=== PATIENT | female | born 1985 | race Caucasian/White ===

== ENCOUNTER 2018-07-01 05:19 | Inpatient (IN) | payer BC ==
--- NOTE | 2018-06-29 11:04 | PCM.PREANE ---
Preanesthetic Assessment - Anesthesia/Transfusion/Family Hx Anesthesia History: Prior Anesthesia Without Reaction (, wisdom teeth, ankle surgery without anesthesia issues. spinal and mac and GA.) Family History of Anesthesia Reaction: No Transfusion History: No Prior Transfusion(s) - Review of Systems General: No Symptoms Pulmonary: No Symptoms Cardiovascular: No Symptoms Gastrointestinal: Other (GERD with ) Neurological: No Symptoms (history of depression in the past) Other: Reports: None - Physical Assessment NPO Status Date: 07/01/18 NPO Status Time: 00:00 Pulse: 89 O2 Sat by Pulse Oximetry: 95 Respiratory Rate: 22 Blood Pressure: 112/64 Temperature: 98.1 C Height: 1.83 m Weight: 88.904 kg ASA Class: 2 Mental Status: Alert & Oriented x3 Airway Class: Mallampati = 1 Dentition: Reports: Normal Dentition Thyro-Mental Finger Breadths: 2 Mouth Opening Finger Breadths: 3 ROM/Head Extension: Full Lungs: Clear to Auscultation, Normal Respiratory Effort Cardiovascular: Regular Rate, Regular Rhythm - Lab Values: 04/23/18 wbc=10.4, HH=11.9/35.2, ixlq=876 07/01/18 WBC 13, HH=11.5/32.8, vqxa=146 - Allergies Allergies/Adverse Reactions: Allergies Allergy/AdvReac Type Severity Reaction Status Date / Time No Known Allergies Allergy Verified 06/26/18 09:13 - Blood Blood Available: Yes Product(s) Available: PRBC - Anesthesia Plan Pre-Op Medication Ordered: Antacids (bicitra to be given pre op) - Acknowledgements Anesthesia Type Planned: Spinal (Plan: SAB with GA backup) Pt an Appropriate Candidate for the Planned Anesthesia: Yes Alternatives and Risks of Anesthesia Discussed w Pt/Guardian: Yes Pt/Guardian Understands and Agrees with Anesthesia Plan: Yes PreAnesthesia Questionnaire HEENT History: Reports: Other (See Below) Other HEENT History: wears glasses/contacts Gastrointestinal History: Reports: Other (See Below) Other Gastrointestinal History: occasional heartburn during Genitourinary History: Reports: None [employer] History: Reports: Musculoskeletal History: Reports: Fracture Other Musculoskeletal History: hx of fx ankle Psychiatric History: Reports: Depression Other Psychiatric History: depression in the past - Past Surgical History Head Surgeries/Procedures: Reports: None HEENT Surgical History: Reports: Oral Surgery Other HEENT Surgeries/Procedures: wisdom teeth extraction Female Surgical History: Reports: Section - SUBSTANCE USE Smoking Status *Q: Never Smoker Recreational Drug Use History: No - HOME MEDS Home Medications: Home Meds Doxylamine Succinate [Unisom Sleep Aid] 1 tab PO BEDTIME PRN 06/26/18 [History] PNV95/Ferrous Fumarate/FA [ Vitamin Tablet] 1 tab PO DAILY 06/26/18 [ History]
[2018-07-01] MEDS ORDERED: Citric Acid/Sodium Citrate Solution 30 ML Cup PO ONE (05:32)
[2018-07-01] MEDS ORDERED: Sodium Chloride 0.9% 10 ML Syringe FLUSH PRN (05:32)
[2018-07-01] MEDS ORDERED: ceFAZolin 2 GM in Premix Bag 1 BAG IV ONE (05:32)
[2018-07-01] MEDS ORDERED: Sodium Chloride 0.9% 2.5 ML Syringe FLUSH PRN (05:32)
[2018-07-01] MEDS ORDERED: Lactated Ringers 1,000 ML IV SCH (05:45)
[2018-07-01] MEDS ORDERED: Oxytocin/0.9 % Sodium Chloride 30 UNIT/500 ML BAG IV SCH (05:45)
[2018-07-01] MEDS ORDERED: Oxytocin 10 Units/1 ML SDV ONE ×3 (06:30)
[2018-07-01] MEDS ORDERED: Ondansetron 4 MG/2 ML SDV ONE (06:32)
[2018-07-01] MEDS ORDERED: Morphine PF 10 MG/10 ML SDV ONE (06:33)
[2018-07-01] MEDS ORDERED: Methylergonovine 0.2 MG/1 ML Amp ONE (06:36)
[2018-07-01] MEDS ORDERED: ceFAZolin 1 GM Vial ONE ×2 (07:24)
[2018-07-01] MEDS ORDERED: Lanolin 100% Cream 7 GM Tube TOP PRN (09:22)
[2018-07-01] MEDS ORDERED: diphenhydrAMINE 50 MG/ML SDV IVPUSH PRN (09:22)
[2018-07-01] MEDS ORDERED: Ondansetron 4 MG/2 ML SDV IVPUSH PRN (09:22)
[2018-07-01] MEDS ORDERED: Bisacodyl 10 MG Supp RECTAL PRN (09:22)
[2018-07-01] MEDS ORDERED: Morphine 4 MG/ML Syringe IVPUSH PRN (09:23)
[2018-07-01] MEDS ORDERED: Nalbuphine 10 MG/1 ML Vial IVPUSH PRN (09:24)
[2018-07-01] MEDS ORDERED: Meperidine PF 25 MG/ML Syringe IVPUSH SCH (09:30)
[2018-07-01] MEDS: Ketorolac 30 MG/ML SDV IVPUSH SCH ×3 (09:42→21:25)
--- NOTE | 2018-07-01 09:42 | PCM.OPNOTE ---
- General Post-Op/Procedure Note Date of Surgery/Procedure: 07/01/18 Operative Procedure(s): Repeat section Findings: Male , Wt 3640 grams, Apgars 8 and 9. Grossly normal placenta with 3 vessel cord. Normal appearing uterus, ovaries and tubes. Pre Op Diagnosis: 39 weeks getation. Previous , declined Post-Op Diagnosis: Same Anesthesia Technique: Spinal Primary Surgeon: Kati Lozano Fluid Replacement, Intraop: 1,200 Output, Urine Amount: 100 EBL in mLs: 600 Complications: None Condition: Good
--- NOTE | 2018-07-01 09:45 | PCM.POSTAN ---
POST ANESTHESIA ASSESSMENT - MENTAL STATUS Mental Status: Alert, Oriented - VITAL SIGNS Pulse Rate: 77 SaO2: 97 Resp Rate: 21 Blood Pressure: 104/55 Temperature: 36.7 C - RESPIRATORY Respiratory Status: Respiratory Rate WNL, Airway Patent, O2 Saturation Stable - CARDIOVASCULAR CV Status: Pulse Rate WNL, Blood Pressure Stable - GASTROINTESTINAL GI Status: No Symptoms - PAIN Pain Score: 0 (spinal [id number]) - POST OP HYDRATION Hydration Status: Adequate & Stable - OBSERVATIONS Free Text/Narrative:: doing very well. Awake, alert, vitals stable. Spinal receeding.
--- NOTE | 2018-07-01 10:56 | PCM48HPAN ---
Post Anesthesia Note - EVALUATION WITHIN 48HRS OF ANESTHETIC Vital Signs in Normal Range: Yes Patient Participated in Evaluation: Yes Respiratory Function Stable: Yes Airway Patent: Yes Cardiovascular Function Stable: Yes Hydration Status Stable: Yes Pain Control Satisfactory: Yes Nausea and Vomiting Control Satisfactory: Yes Mental Status Recovered: Yes Pulse Rate: 77 SaO2: 98 Resp Rate: 16 Temperature: 36.7 C Blood Pressure: 104/55 - COMMENTS/OBSERVATIONS Free Text/Narrative:: awake, alert, vitals stable. at present. Moving legs. Butt still numb. Excellent post op anesthesia recovery. No complaints.
[2018-07-01] MEDS: Lactated Ringers 1,000 ML IV SCH ×2 (11:02→17:51)
--- NOTE | 2018-07-01 12:00 | OR ---
SURGEON: Kati Lozano MD DATE OF PROCEDURE: 07/01/2018 PREOPERATIVE DIAGNOSES: 1. Term at 39 weeks gestation. 2. Repeat elective section. 3. Prior section, declined POSTOPERATIVE DIAGNOSES: 1. Term at 39 weeks gestation. 2. Repeat elective section. 3. Prior section, declined 4. Delivered. PROCEDURE: Repeat low-transverse section via Pfannenstiel. ANESTHESIA: Spinal. ESTIMATED BLOOD LOSS: 600 mL. IV FLUIDS: 1200 mL of crystalloid. URINE OUTPUT: 100 mL clear at the end of the procedure. COMPLICATIONS: None. CONDITION: Stable to recovery room. FINDINGS: Male , Clear amniotic fluid, no nuchal cord, weight 3640 g. scores of 8 and 9 at 1 and 5 minutes respectively. Grossly normal-looking uterus, tubes, and ovaries. Grossly normal placenta with 3-vessel cord. No intraabdominal adhesions seen INDICATION: Ольга is a 33-year-old G6, P1-0-4-1 who was admitted for repeat elective section for history of a prior section. She declined trial of labor after section. DESCRIPTION OF PROCEDURE: The patient was taken to the operating room where spinal anesthesia was performed and found to be adequate. She received 2 g of Ancef. SCDs were in place. She was prepped and draped in the usual sterile fashion in dorsal supine position with a leftward tilt. An appropriate time-out was held. A Pfannenstiel skin incision was made after the old hypertrophied scar had been excised and this was then carried through to the underlying layer of fascia with the Bovie. The fascia was then incised in the midline and the incision was extended laterally with the Owen scissors. The superior aspect of this incision was grasped with Brenda clamps, elevated, and the underlying rectus muscles were dissected off with the Owen and the Bovie. Attention was turned to the inferior aspect of the incision, which in similar fashion was grasped, tented up with Brenda clamps, and the rectus muscles were dissected off with the Bovie. The rectus muscle was then in the midline until the parietal peritoneum was reached. A careful digital sweep underneath the parietal peritoneum revealed no adhesions. This incision was then extended upwards and downwards, both by blunt and sharp dissection. It was further extended laterally by stretching. An Larry O retractor was then inserted into the abdominal cavity. The vesicouterine peritoneum was identified, grasped with pickups, and entered sharply with the Metzenbaum scissors and it was extended laterally with creation of bladder flap digitally. The lower uterine segment was then incised in a transverse fashion with the scalpel and extended upward and downward bluntly. The 's head was delivered atraumatically followed by the rest of the baby. The baby was vigorous at and cried spontaneously. The cord was double clamped and cut and the was handed over to the waiting nursery staff. Cord blood and gas samples were obtained. The placenta was then delivered spontaneously via massage. The uterus was cleaned of all clots and debris. The hysterotomy was then repaired in 2 layers using 0 Vicryl suture. The first layer was repaired in a running locked fashion and a second imbricating layer was performed to obtain excellent hemostasis. The gutters were cleaned of all clots and debris, and the tubes and ovaries were then inspected. Hemostasis was evident along the hysterotomy site. Larry O retractor was removed. The peritoneal edges were identified and this layer was closed with 2-0 Vicryl in a running fashion. The subfascial layer was found to be hemostatic. The fascia was then approximated with 0 Vicryl in a running fashion. The subcuticular layer was made hemostatic with the Bovie. The skin was then closed using subcuticular stitches with a 4-0 Monocryl suture. The patient tolerated the procedure well. Sponge, instrument, and needle counts were reported as correct at the end of the procedure. The patient was taken to the recovery room in a stable condition and the baby to the nursery in a stable condition. ELKE / BRANDY /[id number] MARCELLO
[2018-07-01] MEDS ORDERED: Promethazine 25 MG/ML SDV IM SCH (16:30)
[2018-07-01] MEDS: Docusate Sodium 100 MG Cap PO SCH (21:25)
[2018-07-02] MEDS: Ketorolac 30 MG/ML SDV IVPUSH SCH ×2 (03:31→09:22)
--- NOTE | 2018-07-02 08:07 | PCM.PNPP ---
- General Info Date of Service: 07/02/18 Functional Status: Reports: Pain Controlled, Tolerating Diet, Ambulating, Urinating - Review of Systems General: Denies: Fever, Fatigue, Chills HEENT: Denies: Headaches Pulmonary: Denies: Shortness of Breath, Pleuritic Chest Pain, Cough Cardiovascular: Denies: Chest Pain, Palpitations, Dyspnea on Exertion Gastrointestinal: Denies: Abdominal Pain Genitourinary: Denies: Dysuria, Flank Pain - General Info Date of Service: 07/02/18 - Patient Data Vital Signs - Most Recent: Last Vital Signs Temp 36.4 C 07/02/18 05:00 Pulse 83 07/02/18 06:00 Resp 15 07/02/18 06:00 BP 96/49 L 07/02/18 05:00 Pulse Ox 96 07/02/18 06:00 Weight - Most Recent: 196 lb I&O - Last 24 Hours: Intake & Output 07/01/18 07/02/18 07/02/18 22:59 06:59 14:59 Intake Total 1750 Output Total 1500 2300 Balance 250 -2300 Lab Results - Last 24 Hours: Laboratory Results - last 24 hr 07/01/18 07/02/18 Range/Units 08:39 06:12 Hgb 10.6 L (12.0-16.0) g/dL Hct 32.3 L (36.0-46.0) % Cord ABG pH 7.458 H (7.18-7.38) Cord ABG Base Excess -3 (-10--2) Cord VBG pH 7.327 (7.25-7.45) Cord VBG Base Excess -2 (-10--2) Med Orders - Current: Current Medications Bisacodyl (Dulcolax) 10 mg RECTAL ONETIME PRN PRN Reason: Constipation Diphenhydramine HCl (Benadryl) 25 mg IVPUSH Q6H PRN PRN Reason: Itching or Nausea Docusate Sodium (Colace) 100 mg PO BID [facility] Last Admin: 07/01/18 21:25 Dose: 100 mg Emollient Ointment (Lansinoh Hpa) 0 gm TOP ASDIRECTED PRN PRN Reason: Sore Nipples Lactated Ringer's (Ringers, Lactated) 1,000 mls @ 125 mls/hr IV ASDIRECTED VITOR Last Admin: 07/01/18 17:51 Dose: 125 mls/hr Ibuprofen (Motrin) 800 mg PO Q8H PRN PRN Reason: mild pain or fever Ketorolac Tromethamine (Toradol) 30 mg IVPUSH Q6H [facility] Stop: 07/02/18 09:31 Last Admin: 07/02/18 03:31 Dose: 30 mg Morphine Sulfate (Morphine) 4 mg IVPUSH .ONCE PRN PRN Reason: Pain (severe 7-10) Stop: 07/02/18 11:23 Nalbuphine HCl (Nubain) 5 mg IVPUSH Q3H PRN PRN Reason: Pruritis Stop: 07/02/18 09:24 Ondansetron HCl (Zofran) 4 mg IVPUSH Q4H PRN PRN Reason: Nausea/Vomiting Last Admin: 07/01/18 12:50 Dose: 4 mg Oxycodone/Acetaminophen (Percocet 325-5 Mg) 1 tab PO Q4H PRN PRN Reason: Pain (moderate 4-6) Oxycodone/Acetaminophen (Percocet 325-5 Mg) 2 tab PO Q4H PRN PRN Reason: Pain (moderate 4-6) Promethazine HCl (Phenergan) 12.5 mg IM ONETIME [facility] Last Admin: 07/01/18 16:44 Dose: 12.5 mg Discontinued Medications Cefazolin Sodium (Ancef) Confirm Administered Dose 1 gm .ROUTE .STK-MED ONE Stop: 07/01/18 07:25 Cefazolin Sodium (Ancef) Confirm Administered Dose 1 gm .ROUTE .STK-MED ONE Stop: 07/01/18 07:25 Citric Acid/Sodium Citrate (Bicitra Solution) 30 ml PO ONETIME ONE Stop: 07/01/18 05:33 Cefazolin Sodium/Dextrose 2 gm (/ Premix) 50 mls @ 100 mls/hr IV ONETIME ONE Stop: 07/01/18 06:01 Lactated Ringer's (Ringers, Lactated) 1,000 mls @ 500 mls/hr IV BOLUS [facility] Last Admin: 07/01/18 06:00 Dose: 500 mls/hr Oxytocin/Sodium Chloride (Oxytocin 30 Unit/500 Ml-Ns) 30 unit in 500 mls @ 250 mls/hr IV TITRATE [facility] Meperidine HCl (Demerol) 12.5 mg IVPUSH .ONCE VITOR Stop: 07/01/18 11:00 Methylergonovine Maleate (Methergine) Confirm Administered Dose 0.2 mg .ROUTE .STK-MED ONE Stop: 07/01/18 06:37 Morphine Sulfate (Duramorph Pf) Confirm Administered Dose 10 mg .ROUTE .STK-MED ONE Stop: 07/01/18 06:34 Ondansetron HCl (Zofran) Confirm Administered Dose 4 mg .ROUTE .STK-MED ONE Stop: 07/01/18 06:33 Oxytocin (Pitocin) Confirm Administered Dose 10 unit .ROUTE .STK-MED ONE Stop: 07/01/18 06:31 Oxytocin (Pitocin) Confirm Administered Dose 10 unit .ROUTE .STK-MED ONE Stop: 07/01/18 06:31 Oxytocin (Pitocin) Confirm Administered Dose 10 unit .ROUTE .STK-MED ONE Stop: 07/01/18 06:31 Sodium Chloride (Saline Flush) 10 ml FLUSH ASDIRECTED PRN PRN Reason: Keep Vein Open Sodium Chloride (Saline Flush) 2.5 ml FLUSH ASDIRECTED PRN PRN Reason: Keep Vein Open - Interaction Infant Disposition, : [place] in Room with Family Feeding: Attempted ; Nursed Fair/Poor, Continues to Breastfeed Support Person: - Recovery Exam Fundal Tone: Firm Fundal Level: 1 Fingerbreadths Below Umbilicus Fundal Placement: Midline Lochia Amount: Scant Lochia Color: Rubra/Red Perineum Description: Intact, Minimal Bruising/Swelling Episiotomy/Laceration: None Bladder Status: Voiding Urinary Elimination: Voided - Exam General: Alert, Oriented HEENT: Pupils Equal Neck: Supple Lungs: Clear to Auscultation, Normal Respiratory Effort Cardiovascular: Regular Rate, Regular Rhythm GI/Abdominal Exam: Normal Bowel Sounds, Soft, Non-Tender Extremities: Non-Tender, Pedal Edema Skin: Warm Wound/Incisions: Healing Well Psy/Mental Status: Alert, Normal Affect, Normal Mood - Problem List & Annotations (1) delivery delivered SNOMED Code(s): 534521711 Code(s): O82 - ENCOUNTER FOR DELIVERY WITHOUT INDICATION Status: Acute Current Visit: Yes - Problem List Review Problem List Initiated/Reviewed/Updated: Yes - My Orders Last 24 Hours: My Active Orders 07/01/18 09:22 Acetaminophen/oxyCODONE [Percocet 325-5 MG] 1 tab PO Q4H PRN Acetaminophen/oxyCODONE [Percocet 325-5 MG] 2 tab PO Q4H PRN Bisacodyl [Dulcolax] 10 mg RECTAL ONETIME PRN Lanolin [Lansinoh HPA] See Dose Instructions TOP ASDIRECTED PRN Ondansetron [Zofran] 4 mg IVPUSH Q4H PRN diphenhydrAMINE [Benadryl] 25 mg IVPUSH Q6H PRN Abdominal Binder [OM.PC] Urgent Resuscitation Status Routine 07/01/18 09:23 Patient Status [ADT] Routine Ambulate [RC] PER UNIT ROUTINE Communication Order [RC] PER UNIT ROUTINE Communication Order [RC] PER UNIT ROUTINE Communication Order [RC] Per Unit Routine May Shower [RC] ASDIRECTED RT Incentive Spirometry [RC] Q2HWA Vital Signs [RC] PER UNIT ROUTINE Assess Lochia [WOMSER] Per Unit Routine Assess Uterine Involution [WOMSER] Per Unit Routine Breast Pump [WOMSER] Per Unit Routine Peripheral IV Discontinue [OM.PC] Routine Sequential Compression Device [OM.PC] Per Unit Routine 07/01/18 09:27 Notify Provider Intake and Out [RC] ASDIRECTED Notify Provider Vital Signs [RC] ASDIRECTED 07/01/18 09:28 Intake and Output [RC] Q4H 07/01/18 09:30 Ketorolac [Toradol] 30 mg IVPUSH Q6H Lactated Ringers [Ringers, Lactated] 1,000 ml IV ASDIRECTED 07/01/18 16:30 Promethazine [Phenergan] 12.5 mg IM ONETIME 07/01/18 21:00 Docusate Sodium [Colace] 100 mg PO BID 07/01/18 Lunch Regular Diet [DIET] 07/02/18 15:00 Ibuprofen [Motrin] 800 mg PO Q8H PRN - Assessment Assessment:: POD#1, s/p RLTCS, doing well. Afebrile and stable. - Plan Plan:: Continue current Aim for discharge tomorrow
--- NOTE | 2018-07-02 08:32 | PCM48HPAN ---
Post Anesthesia Note - EVALUATION WITHIN 48HRS OF ANESTHETIC Vital Signs in Normal Range: Yes Patient Participated in Evaluation: Yes Respiratory Function Stable: Yes Airway Patent: Yes Cardiovascular Function Stable: Yes Hydration Status Stable: Yes Pain Control Satisfactory: Yes Nausea and Vomiting Control Satisfactory: Yes Mental Status Recovered: Yes Pulse Rate: 77 Resp Rate: 15 Temperature: 36.7 C Blood Pressure: 104/55 - COMMENTS/OBSERVATIONS Free Text/Narrative:: The patient has no complaints at this time.
[2018-07-02] MEDS: Acetaminophen/oxyCODONE 325-5 MG Tab PO PRN ×2 (15:22→21:43)
[2018-07-02] MEDS: Docusate Sodium 100 MG Cap PO SCH (21:43)
[2018-07-03] MEDS: Ibuprofen 800 MG Tab PO PRN ×2 (01:29→10:07)
[2018-07-03] MEDS: Acetaminophen/oxyCODONE 325-5 MG Tab PO PRN ×2 (06:18→10:10)
--- NOTE | 2018-07-03 08:30 | PCM.PNPP ---
- General Info Date of Service: 07/03/18 Functional Status: Reports: Pain Controlled, Tolerating Diet, Ambulating, Urinating - Review of Systems General: Denies: Fever, Chills HEENT: Denies: Headaches Pulmonary: Denies: Shortness of Breath, Pleuritic Chest Pain Cardiovascular: Denies: Chest Pain, Palpitations, Dyspnea on Exertion Gastrointestinal: Denies: Abdominal Pain Genitourinary: Denies: Dysuria, Flank Pain - General Info Date of Service: 07/03/18 - Patient Data Vital Signs - Most Recent: Last Vital Signs Temp 36.5 C 07/03/18 04:10 Pulse 75 07/03/18 04:10 Resp 16 07/03/18 04:10 BP 103/53 L 07/03/18 04:10 Pulse Ox 96 07/03/18 04:10 Weight - Most Recent: 196 lb Med Orders - Current: Current Medications Bisacodyl (Dulcolax) 10 mg RECTAL ONETIME PRN PRN Reason: Constipation Diphenhydramine HCl (Benadryl) 25 mg IVPUSH Q6H PRN PRN Reason: Itching or Nausea Docusate Sodium (Colace) 100 mg PO BID [facility] Last Admin: 07/02/18 21:43 Dose: 100 mg Emollient Ointment (Lansinoh Hpa) 0 gm TOP ASDIRECTED PRN PRN Reason: Sore Nipples Lactated Ringer's (Ringers, Lactated) 1,000 mls @ 125 mls/hr IV ASDIRECTED [facility] Last Admin: 07/01/18 17:51 Dose: 125 mls/hr Ibuprofen (Motrin) 800 mg PO Q8H PRN PRN Reason: mild pain or fever Last Admin: 07/03/18 01:29 Dose: 800 mg Ondansetron HCl (Zofran) 4 mg IVPUSH Q4H PRN PRN Reason: Nausea/Vomiting Last Admin: 07/01/18 12:50 Dose: 4 mg Oxycodone/Acetaminophen (Percocet 325-5 Mg) 1 tab PO Q4H PRN PRN Reason: Pain (moderate 4-6) Last Admin: 07/03/18 06:18 Dose: 1 tab Oxycodone/Acetaminophen (Percocet 325-5 Mg) 2 tab PO Q4H PRN PRN Reason: Pain (moderate 4-6) Last Admin: 07/02/18 21:43 Dose: 2 tab Promethazine HCl (Phenergan) 12.5 mg IM ONETIME [facility] Last Admin: 07/01/18 16:44 Dose: 12.5 mg Discontinued Medications Cefazolin Sodium (Ancef) Confirm Administered Dose 1 gm .ROUTE .STK-MED ONE Stop: 07/01/18 07:25 Cefazolin Sodium (Ancef) Confirm Administered Dose 1 gm .ROUTE .STK-MED ONE Stop: 07/01/18 07:25 Citric Acid/Sodium Citrate (Bicitra Solution) 30 ml PO ONETIME ONE Stop: 07/01/18 05:33 Cefazolin Sodium/Dextrose 2 gm (/ Premix) 50 mls @ 100 mls/hr IV ONETIME ONE Stop: 07/01/18 06:01 Lactated Ringer's (Ringers, Lactated) 1,000 mls @ 500 mls/hr IV BOLUS [facility] Last Admin: 07/01/18 06:00 Dose: 500 mls/hr Oxytocin/Sodium Chloride (Oxytocin 30 Unit/500 Ml-Ns) 30 unit in 500 mls @ 250 mls/hr IV TITRATE [facility] Ketorolac Tromethamine (Toradol) 30 mg IVPUSH Q6H [facility] Stop: 07/02/18 09:31 Last Admin: 07/02/18 09:22 Dose: 30 mg Meperidine HCl (Demerol) 12.5 mg IVPUSH .ONCE [facility] Stop: 07/01/18 11:00 Methylergonovine Maleate (Methergine) Confirm Administered Dose 0.2 mg .ROUTE .STK-MED ONE Stop: 07/01/18 06:37 Morphine Sulfate (Duramorph Pf) Confirm Administered Dose 10 mg .ROUTE .STK-MED ONE Stop: 07/01/18 06:34 Morphine Sulfate (Morphine) 4 mg IVPUSH .ONCE PRN PRN Reason: Pain (severe 7-10) Stop: 07/02/18 11:23 Nalbuphine HCl (Nubain) 5 mg IVPUSH Q3H PRN PRN Reason: Pruritis Stop: 07/02/18 09:24 Ondansetron HCl (Zofran) Confirm Administered Dose 4 mg .ROUTE .STK-MED ONE Stop: 07/01/18 06:33 Oxytocin (Pitocin) Confirm Administered Dose 10 unit .ROUTE .STK-MED ONE Stop: 07/01/18 06:31 Oxytocin (Pitocin) Confirm Administered Dose 10 unit .ROUTE .STK-MED ONE Stop: 07/01/18 06:31 Oxytocin (Pitocin) Confirm Administered Dose 10 unit .ROUTE .STK-MED ONE Stop: 07/01/18 06:31 Sodium Chloride (Saline Flush) 10 ml FLUSH ASDIRECTED PRN PRN Reason: Keep Vein Open Sodium Chloride (Saline Flush) 2.5 ml FLUSH ASDIRECTED PRN PRN Reason: Keep Vein Open - Interaction Infant Disposition, : [place] in Room with Family Infant Feeding: Attempted ; Nursed Fair/Poor, Continues to Breastfeed Support Person: - Recovery Exam Fundal Tone: Firm Fundal Level: 1 Fingerbreadths Below Umbilicus Fundal Placement: Midline Lochia Amount: Scant Lochia Color: Rubra/Red Perineum Description: Intact, Minimal Bruising/Swelling Episiotomy/Laceration: None Bladder Status: Voiding Urinary Elimination: Voided - Exam General: Alert, Oriented HEENT: Pupils Equal Lungs: Clear to Auscultation, Normal Respiratory Effort Cardiovascular: Regular Rate, Regular Rhythm GI/Abdominal Exam: Normal Bowel Sounds, Soft, Non-Tender Extremities: Non-Tender, Pedal Edema Skin: Warm Wound/Incisions: Healing Well Psy/Mental Status: Alert, Normal Affect, Normal Mood - Problem List & Annotations (1) delivery delivered SNOMED Code(s): 362234700 Code(s): O82 - ENCOUNTER FOR DELIVERY WITHOUT INDICATION Status: Acute Current Visit: Yes - Problem List Review Problem List Initiated/Reviewed/Updated: Yes - My Orders Last 24 Hours: My Active Orders 07/02/18 15:00 Ibuprofen [Motrin] 800 mg PO Q8H PRN - Assessment Assessment:: POD#2, s/p RLTCS, doing well. Clincially stable for discharge - Plan Plan:: Discharge instructions given Nothing in the vagina for 6 weeks Bleeding and infection precautions reviewed depression S/S reviewed and encouraged to call if any concerns Follow up in 2 and 6 weeks
[2018-07-03] MEDS: Docusate Sodium 100 MG Cap PO SCH (10:13)
== END 2018-07-03 11:50 | disposition home or self-care (01) | DRG 540 ==
LOC: MW.OB 05:19
PROVIDERS: ADMIT Obstetrics & Gynecology; ATTEND Obstetrics & Gynecology
PROC: 10D00Z1 Extraction of Products of Conception, Low, Open Approach (ICD-10-PCS; principal; 2018-07-01)
PROC: 6A550ZT Pheresis of Cord Blood Stem Cells, Single (ICD-10-PCS; 2018-07-01)
DX: O34.211 Maternal care for low transverse scar from previous cesarean delivery (principal); Z3A.39 39 weeks gestation of pregnancy; Z37.0 Single live birth
CPT/HCPCS: 36415; 59025; 82803; 85014; 85018; 85027; 86850; 86900; 86901; 88307; A9270-GY; J0690; J1885; J2210; J2270; J2405; J2550; J2590; J7120